=== PATIENT | female | born 1970 | race Caucasian/White ===

== ENCOUNTER → 2019-09-01 | Outpatient (CLI) | payer OTHER ==
[2019-09-01 15:53] LABS: HEMOGLOBIN 13.8 g/dl (12.0-15.5); MEAN CORPUSCULAR HEMOGLOBIN 28.5 pg (27.0-33.0); MEAN CORPUSCULAR HGB CONC 32.9 g/dl (32.0-36.5); MEAN CORPUSCULAR VOLUME 86.6 fl (80.0-96.0); PLATELET COUNT, AUTOMATED 312 10^3/uL (150-450); RED BLOOD COUNT 4.85 10^6/uL (4.00-5.40); WHITE BLOOD COUNT 13.2 10^3/uL (4.0-10.0)
[2019-09-01 15:59] LABS: HEMOGLOBIN A1c 11.5 %
[2019-09-01 16:15] LABS: ALBUMIN 3.3 GM/DL (3.2-5.2); ALT/SGPT 24 U/L (12-78); BILIRUBIN,TOTAL 0.2 MG/DL (0.2-1.0); BLOOD UREA NITROGEN 8 MG/DL (7-18); CALCIUM LEVEL 9.3 MG/DL (8.5-10.1); CARBON DIOXIDE LEVEL 29 MEQ/L (21-32); CHLORIDE LEVEL 102 MEQ/L (98-107); GLOMERULAR FILTRATION RATE > 60.0 (>58); GLUCOSE, FASTING 257 MG/DL (70-100); POTASSIUM SERUM 4.5 MEQ/L (3.5-5.1); SODIUM LEVEL 139 MEQ/L (136-145); TOTAL PROTEIN 7.3 GM/DL (6.4-8.2)
== END ==
LOC: M LAB 14:49
PROVIDERS: ATTEND Surgery
DX: T81.30XA Disruption of wound, unspecified, initial encounter (principal)

== ENCOUNTER → 2019-09-01 | Outpatient (CLI) | payer OTHER | LOC: M PT 14:00 | PROVIDERS: ATTEND Surgery | DX: Z79.899 Other long term (current) drug therapy (principal); Z89.512 Acquired absence of left leg below knee ==

== ENCOUNTER → 2019-09-28 | Outpatient (CLI) | payer OTHER ==
[~2019-09-28] MED LIST: AMIO200T3; ATOR80TA59; BACL1TAB9; CLOP75TA2; DULO1CAP6; GABA800T4; HYDR-3363; LISI10TA4; METF10004; METO1TAB32
--- NOTE | 2019-09-28 20:27 | REPVR ---
PROCEDURE INFORMATION: Exam: MR Lumbar Spine Without Contrast. Exam date and time: 09/28/2019 4:25 PM Age: 48 years old Clinical indication: Low back pain; Additional info: Radiculopathy lumbar region TECHNIQUE: Imaging protocol: Multiplanar magnetic resonance images of the lumbar spine without intravenous contrast. COMPARISON: No relevant prior studies available. FINDINGS: Vertebrae: Unremarkable. Spinal cord: Normal signal. No cord compression. L1-L2: No significant disc disease. No significant spinal canal stenosis. No neural foraminal stenosis. L2-L3: No significant disc disease. No significant spinal canal stenosis. No neural foraminal stenosis. L3-L4: No significant disc disease. No significant spinal canal stenosis. No neural foraminal stenosis. L4-L5: There is a minimal central spinal stenosis at L4-L5 secondary to diffuse annular bulging, thickened ligamentum flavum with moderate bilateral facet joint arthropathy. L5-S1: There is a bulging annulus and left paracentral extruded disc herniation at L5-S1 impinging on the mid and left side of the thecal sac and impinging and posteriorly displacing the left S1 nerve root as it exits from the thecal sac. Bilateral facet joint arthropathy L5-S1. Sacrum/coccyx: Unremarkable. Soft tissues: Unremarkable. IMPRESSION: 1. There is a bulging annulus and left paracentral extruded disc herniation at L5-S1 impinging on the mid and left side of the thecal sac and impinging and posteriorly displacing the left S1 nerve root as it exits from the thecal sac. 2. Minimal central spinal stenosis L4-L5. Electronically signed by: Marcelino English On 09/28/2019 20:27:28 PM
== END ==
LOC: EDUNIT# 09-13 16:30 → M RAD 15:57
PROVIDERS: ATTEND Pain Medicine Interventional Pain Medicine
DX: M54.16 Radiculopathy, lumbar region (principal); M51.27 Other intervertebral disc displacement, lumbosacral region; M48.061 Spinal stenosis, lumbar region without neurogenic claudication

== ENCOUNTER → 2019-11-21 | Outpatient (CLI) | payer OTHER ==
--- NOTE | 2019-12-08 16:10 | REP ---
LOWER EXTREMITY ARTERIAL ULTRASOUND CLINICAL: Diabetic with history of [id number] amputation and nonhealing ulcer. TECHNIQUE: Real-time ayon scale and color Doppler evaluation using linear high frequency transducer. FINDINGS: [id number] partially calcified atheromatous plaquing is appreciated from the common femoral artery to the level of the proximal posterior tibial artery. Biphasic arterial wave patterns are noted. There is no obvious evidence for stenosis or occlusion. However, there is luminal narrowing due to atheromatous changes with subsequent velocities as described. PEAK FLOW VELOCITY ANALYSIS Common femoral artery 147 cm/s biphasic Profunda 99 cm/s biphasic Proximal SFA 104 cm/s biphasic Mid SFA 133 cm/s biphasic Distal SFA 44 cm/s biphasic Popliteal artery 51 cm/s biphasic Proximal MARIA TERESA 22 cm/s biphasic Tibioperoneal trunk 24 cm/s biphasic Proximal HIRED HAND 7 cm/s biphasic IMPRESSION: [id number]-grhaackt atheromatous changes with luminal narrowing, but no focal significant stenosis or occlusion appreciated. MTDD
== END ==
LOC: M RAD 09:35
PROVIDERS: ATTEND Surgery
DX: T81.30XA Disruption of wound, unspecified, initial encounter (principal); T87.89 Other complications of amputation stump; L97.822 Non-pressure chronic ulcer of other part of left lower leg with fat layer exposed; I70.248 Atherosclerosis of native arteries of left leg with ulceration of other part of lower leg

== ENCOUNTER 2019-11-24 17:41 | Emergency (ER) | payer OTHER, MEDICAID ==
[~2019-11-24] VITALS: Ht 167.6 cm; Wt 83.2 kg
[2019-11-24] MEDS ORDERED: BACL1TAB9 (17:51)
[2019-11-24] MEDS ORDERED: GABA800T4 (17:51)
[2019-11-24] MEDS ORDERED: HYDR-3363 (17:51)
[2019-11-24] MEDS ORDERED: METO1TAB32 (17:51)
[2019-11-24] MEDS ORDERED: METF10004 (17:51)
[2019-11-24] MEDS ORDERED: ATOR80TA59 (17:51)
[2019-11-24] MEDS ORDERED: CLOP75TA2 (17:51)
[2019-11-24] MEDS ORDERED: DULO1CAP6 (17:51)
[2019-11-24] MEDS ORDERED: AMIO200T3 (17:51)
[2019-11-24] MEDS ORDERED: LISI10TA4 (17:51)
[2019-11-24] MEDS ORDERED: ACETAMINOPH W/CODEINE #3 TAB UD PO ONE (19:00)
--- NOTE | 2019-11-24 20:44 | REPVR ---
PROCEDURE INFORMATION: Exam: XR Right Finger(s) Exam date and time: 11/24/2019 8:07 PM Age: 48 years old Clinical indication: Other: Pain; Additional info: Right thumb pain TECHNIQUE: Imaging protocol: XR Right fingers. Views: Minimum 2 views. COMPARISON: No relevant prior studies available. FINDINGS: Bones/joints: Normal. Soft tissues: Normal. IMPRESSION: No acute findings. Electronically signed by: Marcelino English On 11/24/2019 20:44:32 PM
--- NOTE | 2019-11-24 20:45 | REPVR ---
PROCEDURE INFORMATION: Exam: XR Right Wrist Exam date and time: 11/24/2019 8:07 PM Age: 48 years old Clinical indication: Other: R radial wrist pain TECHNIQUE: Imaging protocol: XR Right wrist. Views: 3 or more views. COMPARISON: No relevant prior studies available. FINDINGS: Bones/joints: Normal. Soft tissues: Normal. IMPRESSION: No acute findings. Electronically signed by: Marcelino English On 11/24/2019 20:45:14 PM
[2019-11-24 21:09] VITALS: BP 133/70
== END 2019-11-24 21:14 | disposition home or self-care (01) ==
LOC: M ED 17:41
DX: M65.4 Radial styloid tenosynovitis [de Quervain] (principal); M25.531 Pain in right wrist; I11.9 Hypertensive heart disease without heart failure; I48.91 Unspecified atrial fibrillation; I25.2 Old myocardial infarction; E11.9 Type 2 diabetes mellitus without complications; E78.5 Hyperlipidemia, unspecified; M51.26 Other intervertebral disc displacement, lumbar region; Z95.1 Presence of aortocoronary bypass graft; Z95.5 Presence of coronary angioplasty implant and graft; Z89.512 Acquired absence of left leg below knee; Z89.411 Acquired absence of right great toe; Z88.5 Allergy status to narcotic agent; Z79.899 Other long term (current) drug therapy; Z79.84 Long term (current) use of oral hypoglycemic drugs; Z79.02 Long term (current) use of antithrombotics/antiplatelets